=== PATIENT | female | born 1970 | race Asian ===

== ENCOUNTER 2019-09-20 09:47 | Inpatient (IN) | payer BC ==
[~2019-09-20] VITALS: Ht 154.9 cm; Wt 55.8 kg
[2019-09-20] VITALS (17 sets, daily range): BP systolic 83–105; BP diastolic 42–61
[~2019-09-20 09:47] MED LIST: Lidocaine 1% MPF 10mg/ml 5ml ONE; Lidocaine 1% Plain 30 ml INJ ONE; Propofol 200mg/20ml IV ONE; Sodium Chloride 10ml vial INJ ONE; ceFAZolin sod 2 GM in NS 55 ML IVPB ONE
[2019-09-20] MEDS ORDERED: Rocuronium Bromide 50mg/5ml Inj IV ONE (09:54)
[2019-09-20] MEDS ORDERED: LR 1000ml 1,000 ML IVLG SCH ×2 (10:01)
[2019-09-20] MEDS ORDERED: Dexamethasone 4mg/ml vial ONE (10:06)
[2019-09-20] MEDS ORDERED: fentaNYL 100 mcg/2 mL IV ONE (10:07)
[2019-09-20] MEDS ORDERED: Kenalog-40 1ml Vial ONE (10:10)
[2019-09-20] MEDS ORDERED: LORazepam Inj 2mg/ml 1ml IV PRN ×2 (10:15)
[2019-09-20] MEDS ORDERED: Meperidine 25mg/0.5ml Inj (FOR RIGORS ONLY) IV PRN ×2 (10:15)
[2019-09-20] MEDS ORDERED: Metoclopramide 10mg/2ml Inj IVP PRN ×2 (10:15)
[2019-09-20] MEDS ORDERED: Ketorolac 30mg Inj IV PRN ×5 (10:15→12:30)
[2019-09-20] MEDS ORDERED: Atropine Sulfate 0.4mg/ml inj IVP PRN ×2 (10:15)
[2019-09-20] MEDS ORDERED: HYDROcodone/Acetamin 7.5/325 tab ORAL PRN ×2 (10:15)
[2019-09-20] MEDS ORDERED: HYDROcodone/Acetamin 5/325 tab ORAL PRN ×2 (10:15)
[2019-09-20] MEDS ORDERED: oxyCODONE HCL/Acetaminophen 5/325mg ORAL PRN ×2 (10:15)
[2019-09-20] MEDS ORDERED: Hydromorphone 0.5mg/0.5ml inj IVP PRN ×2 (10:15)
[2019-09-20] MEDS ORDERED: DiphenhydrAMINE 50mg/ml Inj IVP PRN ×2 (10:15)
[2019-09-20] MEDS ORDERED: Midazolam 2mg/2ml Inj IVP PRN ×2 (10:15)
[2019-09-20] MEDS ORDERED: Labetalol 5mg/ml 20ml vial IV PRN ×2 (10:15)
[2019-09-20] MEDS ORDERED: fentaNYL 100 mcg/2 mL IV PRN ×2 (10:15)
[2019-09-20] MEDS ORDERED: VITAMIN B COMP1 EAC5 PO (10:33)
[2019-09-20] MEDS ORDERED: VITAMIN D2000 UNI3 PO (10:33)
[2019-09-20] MEDS ORDERED: VITAMIN B12-FO1 EAC1 PO (10:33)
[2019-09-20] MEDS ORDERED: IRON 100 PLUS1 EACH PO (10:33)
--- NOTE | 2019-09-20 10:34 | Anethesia Preoperative Eval ---
Anesthesia Pre-op PMH/ROS General Date of Evaluation: Sep 20, 2019 Time of Evaluation: 10:46 Anesthesiologist: Raad ASA Score: ASA 2 Mallampati Score Class I : Soft palate, uvula, fauces, pillars visible Class II: Soft palate, uvula, fauces visible Class III: Soft palate, base of uvula visible Class IV: Only hard plate visible Mallampati Classification: Class II Surgeon: Josefa Diagnosis: Abd Pain Surgical Procedure: Open Myomectomy Anesthesia History: none Family History: no anesthesia problems Allergies: Coded Allergies: No Known Allergies (Unverified , 09/20/19) Medications: see eMAR Patient NPO?: Yes Past Medical History Gastrointestinal/Genitourinary: Reports: other - Uterine Fibroids Neurologic/Psychiatric: Reports: depression/anxiety Endocrine: Reports: hypothyroidism, other - Thyroid CA Hematology/Immune: Reports: anemia PSxH Narrative: Thyroidectomy, Breast Augmentation Anesthesia Pre-op Phys. Exam Physician Exam Last Vital Signs Date Time Temp Pulse Resp B/P (MAP) Pulse Ox O2 Delivery O2 Flow Rate FiO2 09/20/19 10:22 98.0 79 18 103/57 (72) 100 Constitutional: NAD Neurologic: CN 2-12 intact Cardiovascular: RRR Respiratory: CTA Gastrointestinal: S/NT/ND Airway Exam Mallampati Score: Class II MO: full ROM: full Teeth: intact Anesthesia Pre-op A/P Labs Urine Test Test 09/20/19 10:00 Urine HCG, Qualitative Pending Risk Assessment & Plan Assessment: ASA 2 Plan: GA, SED, GlideScope Go Status Change Before Surgery: No Pre-Antibiotics Dru Gram Ancef IV Given Within 1 Hr of Incision: Yes Drake Shankar MD Sep 20, 2019 10:34
--- NOTE | 2019-09-20 10:35 | Immediate Post-Op Evaluation ---
Immediate Post-Op Evalulation Immediate Post-Op Evalulation Procedure: Open Myomectomy Date of Evaluation: Sep 20, 2019 Time of Evaluation: 12:44 IV Fluids: 800 LR Blood Products: 0 Estimated Blood Loss: 25 Urinary Output: 0 Blood Pressure Systolic: 90 Blood Pressure Diastolic: 50 Pulse Rate: 74 Respiratory Rate: 16 O2 Sat by Pulse Oximetry: 100 Temperature (Fahrenheit): 97.7 Pain Score (1-10): 2 Nausea: No Vomiting: No Complications 0 Patient Status: awake, reacts, patent, extubated, none Hydration Status: adequate Dru Gram Ancef IV Given Within 1 Hr of Incision: Yes Time Given: 11:11 Drake Shankar MD Sep 20, 2019 10:35
--- NOTE | 2019-09-20 10:53 | Pre-Procedure Note/Attestation ---
Pre-Procedure Note/Attestation Complete Prior to Procedure Planned Procedure: not applicable Procedure Narrative: abdominal myomectomy, lysis of adhesions Indications for Procedure Pre-Operative Diagnosis: myoma Attestation I attest that Dr. Villegas discussed the nature of the procedure; its benefits; risks and complications; and alternatives (and the risks and benefits of such alternatives), prior to the procedure, with the patient (or the patient's legal pharmacy services representative). I attest that I will be assisting with procedure and have discussed this with patient I attest that, if there was a reasonable possibility of needing a blood transfusion, the patient (or the patient's legal pharmacy services representative) was given the [place] [facility] [employer] [facility] standardized written summary, pursuant to the Pablo Ramu Blood Safety Act ([place] Health and Safety Code # 1645, as amended). I attest that I re-evaluated the patient just prior to the surgery and that there has been no change in the patient's H&P, except as documented below: Octavio Landers Sep 20, 2019 10:53
[2019-09-20] MEDS ORDERED: Sterile Water Irrig 1000ml IRRIG ONE (11:00)
[2019-09-20] MEDS ORDERED: LR 1000ml ONE (11:00)
[2019-09-20] MEDS ORDERED: Acetaminophen (Non formulary) 100 ML IV ONE (11:15)
[2019-09-20] MEDS ORDERED: Glycopyrrolate 0.2mg/ml 1ml Vial ONE ×2 (11:35→11:43)
[2019-09-20] MEDS ORDERED: Neostigmine 1mg/ml 10ml Inj ONE (11:35)
[2019-09-20] MEDS ORDERED: ePHEDrine 50mg/ml Inj ONE (11:39)
[2019-09-20] MEDS ORDERED: NS Irrig 1000ml IRRIG ONE (11:45)
[2019-09-20] MEDS ORDERED: Gelfoam Size TOPIC ONE (11:51)
[2019-09-20] MEDS ORDERED: Thrombin 5000 units TOPIC ONE (11:53)
--- NOTE | 2019-09-20 12:20 | Brief Operative Note ---
Immediate Post Operative Note Operative Note Pre-op Diagnosis: myoma Procedure: abdominal exposure open lysis of adhesions Post-op Diagnosis: same as pre-op Surgeon: mary Additional Surgeons: geovani Anesthesia: general, local Specimen: yes Complications: none Condition: stable Fluids: see records Estimated Blood Loss: minimal Drains: none Implant(s) used?: No Octavio Landers Sep 20, 2019 12:20
[2019-09-20] MEDS ORDERED: Sennosides 8.6mg tab ORAL PRN (12:30)
[2019-09-20] MEDS ORDERED: HYDROcodone/Acetamin 10/325 tab ORAL PRN (12:30)
[2019-09-20] MEDS ORDERED: Milk of Magnesia 30ml Ud ORAL PRN (12:30)
[2019-09-20] MEDS ORDERED: Morphine Sulfate 2mg/ml Inj(IV/IM USE ONLY) IVP PRN ×2 (12:30)
[2019-09-20] MEDS ORDERED: DiphenhydrAMINE 25mg Tab ORAL PRN (12:30)
--- NOTE | 2019-09-20 14:52 | NUR ---
NURSE NOTES: Patient arrived to unit at 1405 via bed, accompanied by RN. Received report from Hailey DE. Patient is drowsy but arousable on arrival, no acute distress noted, reporting "my abdomen hurts", surgical site dressing clean, dry, intact, SCD's on, IV intact, patent. Corona to gravity drainage. Patient's at bedside, updated on plan of care. Side rails upx3, bed low and locked, call light within reach.
[2019-09-20] MEDS: D5 1/2NS w/KCl 20mEq 1,000 ML IV SCH (15:47)
[2019-09-20] MEDS: HYDROcodone/Acetamin 5/325 tab ORAL PRN (16:22)
--- NOTE | 2019-09-20 16:30 | Operative Note - Dictated ---
DATE OF OPERATION: 09/20/2019 PREOPERATIVE DIAGNOSIS: Myomata. POSTOPERATIVE DIAGNOSIS: Myomata. OPERATION PERFORMED: 1. Abdominal exposure. 2. Open lysis of adhesions. ATTENDING SURGEON: Octavio Landers M.D. ADDITIONAL SURGEON: Adam Rivero M.D. ANESTHESIA: General plus local. ESTIMATED BLOOD LOSS: Minimal. IV FLUIDS: Please see anesthesia records. COMPLICATIONS: None. DRAINS: None. COUNTS: Sponge and needle count correct x2. WOUND CLASSIFICATION: INDICATIONS FOR PROCEDURE: This is a 49-year-old female with symptomatic myomata, who was seen by Dr. Adam Rivero prior and had ablation and has been scheduled for myomectomy on 09/20/2019. Given the patient's history, her embolization history, and planned surgery General surgery was asked to assist in abdominal exposure and lysis of adhesions as necessary. Primary surgeon is Dr. Adam Rivero and I was called to assist him in the exposure lysis of adhesions. I have seen the patient preoperatively and explained to her my role in the procedure. Risks, benefits, alternatives were discussed by Dr. Adam Rivero. OPERATIVE NOTE: The patient was taken to the operating room and placed on the operating table in supine position with bilateral arms out. All bony prominences were well padded. SCDs placed. Preoperative time-out taken in identifying the patient, procedure, operative staff, and surgical staff. General anesthesia was induced and the patient was intubated. The abdomen was clipped, prepped, and draped in standard surgical fashion. A Pfannenstiel incision was utilized using a fresh #10 scalpel and carried down through the skin and subcutaneous tissue to the fascia. A fascia was exposed and incised and the peritoneal lining identified. The peritoneum was opened and entry into the abdomen was obtained without complication. There was some omental adhesions to the peritoneum identified and some small bowel adhesions around the uterus. Gentle blunt dissection and Metzenbaum scissors were used to free the adhesions from the uterus and the dome of the uterus was grasped and uterus was brought into the operative field. The myomata was evaluated and noted. Dr. Adam Rivero performed the remainder of the procedure. Please see his operative report for details and the myoma was resected. Following this, the abdomen was checked for hemostasis and noted. The lysis was identified and noted to be hemostatic and without complication. At this time, we began the closure of the abdomen. The peritoneal lining was reapproximated using #0 Vicryl suture. The fascia was reapproximated using #0 Vicryl sutures followed by reapproximation of the skin using 3-0 Monocryl running subcuticular suture. Wound was cleansed. Skin glue was applied followed by Steri-Strips and dressings. The patient tolerated procedure well, was extubated, and taken to postanesthetic care in stable condition. I was present through the entire procedure and performed the abdominal exposure as well as the lysis of adhesions. I assisted Dr. Adam Rivero with a myomectomy which he had performed. Octavio Landers M.D. DR: Aissatou JOB#: [id number] CC:
[2019-09-20] MEDS: Docusate 100mg cap ORAL SCH (17:57)
[2019-09-20] MEDS: cefOXitin Sod 2 GM in D5W 110 ML IV SCH (17:58)
--- NOTE | 2019-09-20 18:25 | NUR ---
CASE MANAGEMENT: INITIAL REVIEW 09/20/2019 49 YO F PRESENTED TO HOSPITAL FOR SURGERY SI:FIBROIDS T 98 HR 79 RR 18 B/P 103/57 SATS 100% ON RA LABS: HCG (-) IS: IVF @ 75 mL/HR VENOFER IV QHS CEFOXITIN IV Q6H PATIENT ADMITTED TO MED/SURG 09/20/2019 @ 1220 DCP: HOME PLAN OF CARE: Pre-op Diagnosis: myoma Procedure: abdominal exposure open lysis of adhesions Post-op Diagnosis: same as pre-op Addendum: 09/20/19 at 1830 by Neida Dominguez CM INTERQUAL MET
--- NOTE | 2019-09-20 19:00 | NUR ---
NURSE NOTES: Called Dr. Rivero regarding patient's request for different pain medications, left voicemail. Awaiting callback.
--- NOTE | 2019-09-20 19:23 | NUR ---
NURSE NOTES: Received report from SANTINO Vasquez. Pt is awake, lying semi-pond's. No signs of acute distress noted. Pt reports 10/10 pain in the abdomen area. Will provide pain medication as soon as possible. AOx4; able to make needs known. Checked IV site, line, and rate; patent and running. No erythema, bleeding, or infiltration noted. Bed at lowest position. Siderails up x2. Brakes on. Call light within reach. Will continue to monitor.
--- NOTE | 2019-09-20 19:27 | NUR ---
HAND-OFF: Report given to Oumou DE.
--- NOTE | 2019-09-20 19:30 | NUR ---
NURSE NOTES: Received a call from Dr. Rivero for an order of Dilaudid 2 mg IVP for PRN severe pain. Order read back and carried out.
--- NOTE | 2019-09-20 19:40 | NUR ---
NURSE NOTES: Received a call from Pharmacy regarding the PRN pain medications ordered. Pharmacy said that "...cannot have both Dilaudid and Morphine for severe pain medication. You have to cancel one of the two". Pt made aware of this and pt stated that "I want to try morphine since I wasn't given that yet and I have had it before". Request carried out and pt verbalized understanding of her decision.
[2019-09-20] MEDS: Morphine Sulfate 4mg/ml Inj (IV USE ONLY) IVP PRN (20:02)
[2019-09-20] MEDS: Iron Sucrose 100 MG in NS 55 ML IV SCH (20:44)
[2019-09-20] MEDS: Heparin 5000 units/ml inj SUBQ SCH (20:47)
[2019-09-21] VITALS (7 sets, daily range): BP systolic 81–101; BP diastolic 43–59
[2019-09-21] MEDS: cefOXitin Sod 2 GM in D5W 110 ML IV SCH ×2 (00:28→05:02)
[2019-09-21] MEDS: Morphine Sulfate 4mg/ml Inj (IV USE ONLY) IVP PRN ×2 (00:31→20:46)
--- NOTE | 2019-09-21 04:15 | NUR ---
NURSE NOTES: Pt's SBP dropped to low 70s and office machinery or equipment installer made aware. Repositioned pt with feet elevated and pt's SBP went back up to 80s, which is the baseline SBP according to pt. Pt also complains of 5/10 pain in the abdomen area. Unable to provide morphine pain relief due to low SBP. Pt refused to take another pain medication aside from pain medication as pt is afraid she might feel "sick in the stomach" and for it to not work as well as morphine. Pt made aware of the consequences and other options she has for pain medication. Pt verbalized understanding. Addendum: 09/22/19 at 0004 by Sundar Doty RN Pt was asymptomatic when SBP was in the low 70s. However, pt started complaining of feeling like "vomiting" when her SBP started to go back up to 80s.
[2019-09-21] MEDS: D5 1/2NS w/KCl 20mEq 1,000 ML IV SCH ×2 (04:36→18:34)
--- NOTE | 2019-09-21 04:45 | Operative Note - Dictated ---
DATE OF OPERATION: 09/20/2019 SURGEON: Adam Rivero M.D. [employer] SALES CONSULTANT: Octavio Landers M.D. ANESTHESIOLOGIST: Drake Shankar M.D. ANESTHESIA: General endotracheal. PREOPERATIVE DIAGNOSIS: Symptomatic leiomyoma of the uterus. POSTOPERATIVE DIAGNOSES: Symptomatic leiomyoma of the uterus plus pelvic adhesions plus right ovarian cyst. PROCEDURE: Abdominal myomectomy (difficult), lysis of adhesions (dictated by Dr. Landers as a separate note), and incisional biopsy of right ovarian cyst. ESTIMATED BLOOD LOSS: Less than 10 mL. COMPLICATIONS: None. COUNT: Sponge and needle count correct x2. INDICATIONS AND FINDINGS: This perimenopausal female presents with pelvic pain with leiomyoma of the uterus known. The patient has been anemic from heavy bleeding. She is taken to the operating room following an extensive discussion of risks, benefits, and alternatives to abdominal myomectomy including abdominal hysterectomy. The patient desires to continue with the procedure as described in the operative consent. FINDINGS: At the time of laparotomy included pelvic adhesions, which were lysed by Dr. Lnaders (see separate procedure). The uterus had a cervical myoma of approximately 6 cm. This was removed as described below. A second submucous myoma was also removed. The left tube and ovary were normal. The right ovary had a cyst with malignant potential, which was excised as described below. There is no evidence of continued bleeding at the end of the procedure. No evidence of disruption of genitourinary or gastrointestinal tract. The urine was clear at the end of the case. The patient left the operating room in stable condition. DESCRIPTION OF PROCEDURE: Under general anesthesia, the patient was prepped and draped, placed in the dorsal position. Abdomen entered through a Pfannenstiel incision and the abdominal cavity was entered bluntly. The uterus was delivered out of the incision. The findings described above were noted. Following the lysis of adhesions by Dr. Landers (dictated as a separate note), the patient's serosa was injected with 20 units of Pitressin and 50 mL of saline. The cervical myoma was elevated out of the Pfannenstiel incision and dissected bluntly and sharply. Bleeding points were fulgurated with cautery current. A second submucous myoma was entered. It was found by using a midline incision. The incision was carried down to the myoma, which was then noted to be in the endometrial cavity and likely to be the cause of the patient's menorrhagia. This was also excised. Time of both excisions is 45 minutes. Bleeding points again were fulgurated. A thrombin-soaked Gelfoam pack was placed in the deep endometrial cavity. The space was closed with interrupted sutures of #1 chromic. The patient's serosa was then closed with running and interrupted 0 Vicryl suture. No bleeding points were seen. mattress # 1chromic sutures were used to close the space. No bleeding was seen. Sponge and needle count was correct and the abdominal cavity was then closed. Prior to this, the right ovarian cyst had been excised. Cyst fluid sent for cytologic evaluation and the cyst wall was sent for pathologic exam. The patient's fascia was closed with interrupted sutures of 0 Vicryl. The skin was then closed with 3-0 Prolene and Steri-Strips. No bleeding was seen. Urine was clear. Vital signs were stable. The patient left the operating room in stable condition. Adam Rivero M.D. DR: Marco Antonio JOB#: [id number] CC: MICHA
[2019-09-21] MEDS: Metoclopramide 10mg/2ml Inj IVP PRN ×2 (05:15→21:21)
[2019-09-21 06:01] LABS: HEMATOCRIT 21.5 % (37.0-47.0); MEAN CORPUSCULAR VOLUME 83 FL (80-99); PLATELET COUNT 300 K/UL (150-450); RED BLOOD COUNT 2.58 M/UL (4.20-5.40); RED CELL DISTRIBUTION WIDTH 13.2 % (11.6-14.8); WHITE BLOOD COUNT 12.8 K/UL (4.8-10.8)
[2019-09-21 06:23] LABS: ANION GAP 8 mmol/L (5-15); BLOOD UREA NITROGEN 5 mg/dL (7-18); CALCIUM 7.5 MG/DL (8.5-10.1); CARBON DIOXIDE 24 MMOL/L (21-32); CHLORIDE 109 MMOL/L (98-107); CREATININE 0.5 MG/DL (0.55-1.30); PHOSPHORUS 2.6 MG/DL (2.5-4.9); POTASSIUM 3.7 MMOL/L (3.5-5.1); SODIUM 140 MMOL/L (136-145)
--- NOTE | 2019-09-21 07:35 | NUR ---
HAND-OFF: Report given to SANTINO Perdue. Pt is awake and in stable condition. Plan of care endorsed.
--- NOTE | 2019-09-21 08:16 | NUR ---
NURSE NOTES: received report from SANTINO Coello. patient in bed alert oriented. verbally responsive. no respiratory distress noted. discomfort on lower abd. BP 81/50 at this time. no dizziness. no nausea. IV on RH 20 running D51/2ns@75/hr. bed in the lowest position and locked. call light within reach. will continue to provide plan of care.
--- NOTE | 2019-09-21 08:32 | History & Physical ---
History and Physical History & Physicial DICT # [id number] Bin Ayala MD Sep 21, 2019 08:32
[2019-09-21] MEDS: Heparin 5000 units/ml inj SUBQ SCH ×2 (09:05→20:55)
[2019-09-21] MEDS: Docusate 100mg cap ORAL SCH ×2 (09:05→18:00)
--- NOTE | 2019-09-21 09:43 | NUR ---
NURSE NOTES: Spoke to regarding patient. Per :1. Hold Blood transfusion for now, 2. Repeat CBC @ noon, 3. D/C Corona. Order noted and carried out.
--- NOTE | 2019-09-21 11:24 | 48 Hour Post Anesthesia Eval ---
Post Anesthesia Evaluation Procedure: Open Myomectomy Date of Evaluation: Sep 21, 2019 Airway: patent Nausea: No Vomiting: No Pain Intensity: 2 Hydration Status: adequate Cardiopulmonary Status: at baseline Mental Status/LOC: patient returned to baseline Post-Anesthesia Complications: 0 Follow-up care needed: N/A - hb down to 7, patient slightly hypotensive but otherwise stable and AAOx3, further care as per primary team/Dr. Koroma...possible blood transfusion, pending follow up Hb Grace Flores MD Sep 21, 2019 11:24
[2019-09-21 12:45] LABS: HEMATOCRIT 21.2 % (37.0-47.0); MEAN CORPUSCULAR VOLUME 84 FL (80-99); PLATELET COUNT 284 K/UL (150-450); RED BLOOD COUNT 2.54 M/UL (4.20-5.40); RED CELL DISTRIBUTION WIDTH 13.5 % (11.6-14.8); WHITE BLOOD COUNT 11.9 K/UL (4.8-10.8)
[2019-09-21 12:46] LABS: HEMOGLOBIN 6.8 G/DL (12.0-16.0)
--- NOTE | 2019-09-21 13:18 | NUR ---
NURSE NOTES: Notified Dr. Koroma for the critical Lab of Hgb6.8. MD will see patient in an hour. and patient is aware.
--- NOTE | 2019-09-21 13:32 | NUR ---
PT NOTE Received MD order for PT evaluation. PT evaluation deferred due to critical value low Hgb at 6.8 and low BP. Discussed with Iron DE, will follow up tomorrow.
--- NOTE | 2019-09-21 13:49 | NUR ---
NURSE NOTES: seen by Dr. Landers. received order of upgrade diet to regular diet. order noted and carried out.
--- NOTE | 2019-09-21 14:02 | NUR ---
NURSE NOTES: Spoke to regarding pain medication and blood pressure. Per : ok to give pain medication with low blood pressure. Order noted and carried out.
[2019-09-21] MEDS ORDERED: HYDROmorphone 1mg/ml Carpuject IVP SCH (14:04)
[2019-09-21] MEDS ORDERED: Hydromorphone 0.5mg/0.5ml inj IVP PRN ×2 (14:15)
[2019-09-21] MEDS ORDERED: HYDROmorphone 1mg/ml Carpuject IVP PRN ×3 (14:15)
--- NOTE | 2019-09-21 14:30 | History and Physical Report ---
DATE OF ADMISSION: 09/20/2019 REASON FOR ADMISSION: Post myomectomy. HISTORY OF PRESENT ILLNESS: The patient is a 49-year-old female with a history of thyroid cancer, status post partial thyroidectomy and uterine fibroids, prior uterine fibroid embolization with heavy menses and dysfunctional uterine bleeding, status post uterine myomectomy. She is doing well except for pain. Her blood pressure has been borderline. Thus, her pain medications have been held. She feels flatus, but no bowel movement. No fevers or chills. No nausea or vomiting. No chest pain or other complaints. PAST MEDICAL HISTORY: 1. Fibroids. 2. Hypothyroidism. 3. Thyroid cancer. PAST SURGICAL HISTORY: 1. Partial thyroidectomy. 2. Uterine fibroid embolization. 3. Breast augmentation and nipple reduction. 4. Uterine myomectomy. ALLERGIES: No known drug allergies. MEDICATIONS: Prior to admission medications, reviewed. Current medications, reviewed. SOCIAL HISTORY: She is a pharmacist. , has three teenage children. No tobacco, alcohol, or drug use. FAMILY HISTORY: Father with nasopharyngeal CA. REVIEW OF SYSTEMS: Negative other than the history of present illness. PHYSICAL EXAMINATION: VITAL SIGNS: Temperature 99.1, pulse 79, blood pressure , respiratory rate 18, saturation 100% on 2 L. GENERAL: She is a well-developed and well-nourished female, in no acute distress. Awake, alert, and oriented x3. HEENT: Normocephalic and atraumatic. Oropharynx is clear with moist mucous membranes. NECK: Supple without lymphadenopathy or JVD. CHEST: Clear. HEART: Regular. ABDOMEN: Mild diffuse tenderness. Soft, nondistended. Hypoactive bowel sounds. ANCILLARY DATA: White count 12.8, hemoglobin 7, hematocrit 21.5, and platelet count 300. Sodium 140, potassium 3.7, chloride 109, bicarb 24, BUN 5, creatinine 0.5, glucose 126, calcium 7.5. Urine test negative. Laboratories from my office, reviewed. ASSESSMENT: The patient is a 49-year-old female with a history of uterine fibroids and dysfunctional uterine bleeding, prior uterine fibroid embolization, now status post uterine myomectomy, postop day 1, doing well except for postoperative anemia and low blood pressure. PROBLEM LIST: 1. Uterine fibroids, status post prior uterine fibroid embolization, now status post myomectomy, 09/20/2019, Dr. Rivero. 2. History of thyroid cancer, status post partial thyroidectomy. 3. Postoperative anemia. TREATMENT PLAN: 1. Pain control/supportive care. 2. Transfuse PRBC. 3. IV fluid hydration. 4. Monitor for further bleeding. 5. Monitor for return of bowel function. 6. Advanced diet per Dr. Rivero. 7. Encourage ambulation out of bed. 8. DVT prophylaxis. 9. Incentive spirometer. 10. The patient is a Full Code. Dr. Rivero, thank you for allowing me to assist in the care of your patient. If I may be of any assistance in the future, please do not hesitate to ask. Heather Lemons JOB#: [id number] CC:
--- NOTE | 2019-09-21 14:53 | Surgery Progress Note ---
Surgery Progress Note Subjective Procedure Performed abdominal exposure open lysis of adhesions Additional Comments post op pain no n/v/f/c labs stable/improving Objective Last 24 Hour Vital Signs Date Time Temp Pulse Resp B/P (MAP) Pulse Ox O2 Delivery O2 Flow Rate FiO2 09/21/19 12:00 98.7 82 18 81/50 (60) 100 09/21/19 09:00 Nasal Cannula 2.0 09/21/19 08:00 98.6 73 20 81/50 (60) 99 09/21/19 04:00 99.1 79 18 81/49 (60) 100 09/21/19 00:00 99.1 77 16 93/55 (68) 99 09/20/19 21:00 Nasal Cannula 2.0 09/20/19 20:00 99.0 71 16 102/60 (74) 98 09/20/19 17:05 72 14 98/60 (73) 99 09/20/19 16:05 77 14 96/61 (73) 98 09/20/19 15:48 97.9 09/20/19 15:05 76 14 90/52 (65) 99 I&O Intake and Output 09/20/19 09/21/19 19:00 07:00 Intake Total 3350 ml 1290 ml Output Total 750 ml 1500 ml Balance 2600 ml -210 ml Intake Oral 50 ml IV Total 3300 ml 1290 ml Output Urine Total 725 ml 1500 ml Estimated Blood Loss 25 ml # Voids 1 Dressing: dry Wound: clean Cardiovascular: RSR Respiratory: clear Abdomen: soft, tenderness, decreased bowel sounds Extremities: no cyanosis Laboratory Tests Test 09/21/19 05:00 09/21/19 12:30 White Blood Count 12.8 K/UL (4.8-10.8) H 11.9 K/UL (4.8-10.8) H Red Blood Count 2.58 M/UL (4.20-5.40) L 2.54 M/UL (4.20-5.40) L Hemoglobin 7.0 G/DL (12.0-16.0) L 6.8 G/DL (12.0-16.0) *L Hematocrit 21.5 % (37.0-47.0) L 21.2 % (37.0-47.0) L Mean Corpuscular Volume 83 FL (80-99) 84 FL (80-99) Mean Corpuscular Hemoglobin 27.0 PG (27.0-31.0) 26.8 PG (27.0-31.0) L Mean Corpuscular Hemoglobin Concent 32.5 G/DL (32.0-36.0) 32.1 G/DL (32.0-36.0) Red Cell Distribution Width 13.2 % (11.6-14.8) 13.5 % (11.6-14.8) Platelet Count 300 K/UL (150-450) 284 K/UL (150-450) Mean Platelet Volume 5.8 FL (6.5-10.1) L 5.9 FL (6.5-10.1) L Neutrophils (%) (Auto) % (45.0-75.0) % (45.0-75.0) Lymphocytes (%) (Auto) % (20.0-45.0) % (20.0-45.0) Monocytes (%) (Auto) % (1.0-10.0) % (1.0-10.0) Eosinophils (%) (Auto) % (0.0-3.0) % (0.0-3.0) Basophils (%) (Auto) % (0.0-2.0) % (0.0-2.0) Differential Total Cells Counted 100 100 Neutrophils % (Manual) 85 % (45-75) H 86 % (45-75) H Lymphocytes % (Manual) 7 % (20-45) L 8 % (20-45) L Monocytes % (Manual) 8 % (1-10) 6 % (1-10) Eosinophils % (Manual) 0 % (0-3) 0 % (0-3) Basophils % (Manual) 0 % (0-2) 0 % (0-2) Band Neutrophils 0 % (0-8) 0 % (0-8) Platelet Estimate Adequate Adequate Platelet Morphology Normal Normal Hypochromasia 1+ 1+ Sodium Level 140 MMOL/L (136-145) Potassium Level 3.7 MMOL/L (3.5-5.1) Chloride Level 109 MMOL/L (98-107) H Carbon Dioxide Level 24 MMOL/L (21-32) Anion Gap 8 mmol/L (5-15) Blood Urea Nitrogen 5 mg/dL (7-18) L Creatinine 0.5 MG/DL (0.55-1.30) L Estimat Glomerular Filtration Rate > 60 mL/min (>60) Glucose Level 126 MG/DL (74-106) H Calcium Level 7.5 MG/DL (8.5-10.1) L Phosphorus Level 2.6 MG/DL (2.5-4.9) Magnesium Level 1.9 MG/DL (1.8-2.4) Polychromasia 1+ Anisocytosis 1+ Assessment Additional Comments clear liquids do not advance yet iv fluids pain rx pt/ot AM labs than you Octavio Landers Sep 21, 2019 14:53
--- NOTE | 2019-09-21 15:00 | NUR ---
PT EVALUATION NOTE Patient seen for initial evaluation. Patient presents with pain and impaired functional mobility s/p surgery. Patient requires mod assist for bed mobility and transfers. Patient able to take several small sideways steps with assistance. Mobility and activity tolerance limited by pain. Patient will benefit from skilled inpatient PT intervention to address strength, balance and safety for increased level of independence with functional mobility. Anticipate discharge home once medically cleared by MD. DME needs to be determined based on patient's progress. Addendum: 09/21/19 at 1502 by VERONA GARCIA PT Amended: Links added.
--- NOTE | 2019-09-21 16:20 | NUR ---
NURSE NOTES: confirmed with Franci Britton. hold transfusion now per patient request. will see the lab tomorrow. patient request get back to morphine d/t dilaudid makes her too drowsy. notified and received order to resume morphine. DC cosme.
--- NOTE | 2019-09-21 16:32 | NUR ---
CASE MANAGEMENT: INITIAL REVIEW 49YR OLD FEMALE HERE FOR ELECTIVE PROCEDURE CC: ABD PAIN SI:UTERINE FIBROIDS 98.0 79 18 103/57 100% ON RA IS:IN SURGERY NOW OPEN MYOMECTOMY \: 3E MED SURG UNIT CASE MANAGEMENT: REVIEW 09/21/19 SI:S/P OPEN MYOMECTOMY UTERINE FIBROIDS 98.7 82 18 81/50 100% ON RA WBC 12.8 H/H 6.5/21.2 IS:HEPARIN SQ BID IV D5@75ML/HR IV VENOFER QHS X 5BAGS \: 3E MED SURG UNIT
--- NOTE | 2019-09-21 19:21 | NUR ---
NURSE NOTES: Received report from SANTINO Perdue. Pt is awake, lying semi-pond's. No signs of acute distress noted. Pt reports 10/10 pain in the abdomen area. AOx4; able to make needs known. IV site is discontinued. Off going RN tried 2x to establish IV site but unsuccessful. Will reattempt again at a later time. No erythema or bleeding noted. Bed at lowest position. Brakes on. Siderails up x2. Call light within reach. Will continue to monitor.
--- NOTE | 2019-09-21 19:24 | NUR ---
NURSE NOTES: returned morphine 1mg IVP d/t IV site occluded.
--- NOTE | 2019-09-21 19:25 | NUR ---
HAND-OFF: Report given to SANTINO faye.
--- NOTE | 2019-09-21 20:29 | NUR ---
NURSE NOTES: Pt has a temperature of 102.5 and pt requested to change her moderate and severe pain medications. She stated that the dilaudid that she got earlier today before she got up to PT was "too strong" and made her very drowsy. Dr. Rivero made aware of the pt's condition and request. Dr. Rivero made new orders. See orders for details.
--- NOTE | 2019-09-21 20:29 | NUR ---
NURSE NOTES: New orders noted and carried out. Addendum: 09/22/19 at 0730 by Sundar Doty RN New orders were from Dr. Rivero. Addendum: 09/22/19 at 0731 by Sundar Doty RN This is back charting from 09/21/2018 at 2029.
--- NOTE | 2019-09-21 20:30 | NUR ---
NURSE NOTES: Dr. Landers made aware of the pt's request to change her dilaudid medications for moderate and severe pain to morphine instead. New orders noted and carried out. See orders for details.
[2019-09-21] MEDS: Iron Sucrose 100 MG in NS 55 ML IV SCH (20:47)
[2019-09-21] MEDS: ceFAZolin sod 1 GM in D5W 55 ML IVPB SCH (21:21)
--- NOTE | 2019-09-21 21:30 | NUR ---
NURSE NOTES: Pt's has reported his concern regarding the care that his has been getting. He stated that the "PT that took care of her this morning were very impatient. They did not care about my , was rushing, and just want to get the job done and leave". He also complained that "the pain management here in this hospital has not been good". Pain medication was not given on the prior night 09/20/2019 due to low BP in the 70s and low 80s until the Doctors saw the pt in the am and okayed giving pain medications with low BPs. He also stated that his 's IV site has not been working since 1600 and his "was not given pain medication for a while because of that" in the am shift 09/21/2019. New IV site was not established until 1999 and was finally given pain medication. Will keep up with the pt's pain medication on the clock. He also complained about how his has not been getting the IV fluid that she was supposed to get since 1400, which he also stated as the cause of the "IV not working". The was very unsatisfied with the care. The pt and the were informed of the pain medications will be given on time according to the schedule without delayed. fireproof door maker made aware of his complaints and concerns. Pt's has already talked to fireproof door maker as well about his complaints and concerns. Oncoming RN will be informed of the concerns. verbally stated that he understands.
[2019-09-22] VITALS: BP 100/59
[2019-09-22] MEDS: Morphine Sulfate 4mg/ml Inj (IV USE ONLY) IVP PRN ×3 (00:49→09:08)
[2019-09-22 04:00] VITALS: BP 92/57
[2019-09-22] MEDS: Metoclopramide 10mg/2ml Inj IVP PRN (04:40)
[2019-09-22] MEDS: ceFAZolin sod 1 GM in D5W 55 ML IVPB SCH ×3 (05:30→22:19)
[2019-09-22 06:11] LABS: ALANINE AMINOTRANSFERASE 28 U/L (12-78); ALBUMIN 2.4 G/DL (3.4-5.0); ALBUMIN/GLOBULIN RATIO 0.7 (1.0-2.7); ALKALINE PHOSPHATASE 60 U/L (46-116); ANION GAP 8 mmol/L (5-15); ASPARTATE AMINO TRANSFERASE 36 U/L (15-37); BILIRUBIN,TOTAL 0.5 MG/DL (0.2-1.0); BLOOD UREA NITROGEN 4 mg/dL (7-18); CALCIUM 7.8 MG/DL (8.5-10.1); CARBON DIOXIDE 25 MMOL/L (21-32); CHLORIDE 108 MMOL/L (98-107); CREATININE 0.5 MG/DL (0.55-1.30); POTASSIUM 3.7 MMOL/L (3.5-5.1); SODIUM 141 MMOL/L (136-145)
[2019-09-22 06:14] LABS: HEMATOCRIT 21.6 % (37.0-47.0); HEMOGLOBIN 7.1 G/DL (12.0-16.0); MEAN CORPUSCULAR VOLUME 83 FL (80-99); PLATELET COUNT 318 K/UL (150-450); RED CELL DISTRIBUTION WIDTH 13.2 % (11.6-14.8); WHITE BLOOD COUNT 12.8 K/UL (4.8-10.8)
--- NOTE | 2019-09-22 07:28 | NUR ---
NURSE NOTES: Received pt From Sundar Coello RN. pt was sleeping, was at bedside. no acute distress. call light w/in reach. will monitor closely
[2019-09-22 08:00] VITALS: BP 94/57
--- NOTE | 2019-09-22 08:23 | NUR ---
NURSE NOTES: Report given to SANTINO Johnson. Pt is awake and in stable condition. Plan of care endorsed. Addendum: 09/22/19 at 0824 by uSndar Doty RN Wrong patient documentation.
--- NOTE | 2019-09-22 08:23 | NUR ---
HAND-OFF: Report given to SANTINO Al. Pt is awake and in stable condition. Plan of care endorsed.
[2019-09-22] MEDS ORDERED: Omnipaque-300 100ml vial INJ PRN (08:45)
[2019-09-22] MEDS: Docusate 100mg cap ORAL SCH ×2 (09:02→17:20)
[2019-09-22] MEDS: D5 1/2NS w/KCl 20mEq 1,000 ML IV SCH ×2 (09:02→15:00)
[2019-09-22] MEDS: Heparin 5000 units/ml inj SUBQ SCH ×2 (09:04→20:44)
[2019-09-22 12:00] VITALS: BP 96/62
[2019-09-22] MEDS: Morphine Sulfate 2mg/ml Inj(IV/IM USE ONLY) IVP PRN ×2 (13:29→20:41)
--- NOTE | 2019-09-22 14:31 | Surgery Progress Note ---
Surgery Progress Note Subjective Procedure Performed abdominal exposure open lysis of adhesions Symptoms: improved, tolerating diet, voiding well, pain decreased Objective Last 24 Hour Vital Signs Date Time Temp Pulse Resp B/P (MAP) Pulse Ox O2 Delivery O2 Flow Rate FiO2 09/22/19 12:00 99.5 83 20 96/62 (73) 100 09/22/19 09:33 99.6 09/22/19 09:00 Room Air 09/22/19 08:00 101.1 91 20 94/57 (69) 98 09/22/19 04:00 99.7 80 20 92/57 (69) 98 09/22/19 00:00 99.8 91 18 100/59 (73) 98 09/21/19 21:17 100.5 09/21/19 21:00 Room Air 09/21/19 20:00 102.5 97 20 101/59 (73) 97 09/21/19 16:00 98.9 83 20 82/43 (56) 99 09/21/19 16:00 98.7 82 18 81/50 (60) 100 I&O Intake and Output 09/21/19 09/22/19 19:00 07:00 Intake Total 825 ml 150 ml Balance 825 ml 150 ml Intake Oral 150 ml IV Total 825 ml # Voids 1 Dressing: dry Wound: clean Cardiovascular: RSR Respiratory: clear Abdomen: soft, non-tender, present bowel sounds, non-distended Extremities: no edema, no tenderness, no cyanosis Laboratory Tests Test 09/22/19 05:05 White Blood Count 12.8 K/UL (4.8-10.8) H Red Blood Count 2.60 M/UL (4.20-5.40) L Hemoglobin 7.1 G/DL (12.0-16.0) L Hematocrit 21.6 % (37.0-47.0) L Mean Corpuscular Volume 83 FL (80-99) Mean Corpuscular Hemoglobin 27.5 PG (27.0-31.0) Mean Corpuscular Hemoglobin Concent 33.1 G/DL (32.0-36.0) Red Cell Distribution Width 13.2 % (11.6-14.8) Platelet Count 318 K/UL (150-450) Mean Platelet Volume 5.5 FL (6.5-10.1) L Neutrophils (%) (Auto) % (45.0-75.0) Lymphocytes (%) (Auto) % (20.0-45.0) Monocytes (%) (Auto) % (1.0-10.0) Eosinophils (%) (Auto) % (0.0-3.0) Basophils (%) (Auto) % (0.0-2.0) Differential Total Cells Counted 100 Neutrophils % (Manual) 92 % (45-75) H Lymphocytes % (Manual) 5 % (20-45) L Monocytes % (Manual) 3 % (1-10) Eosinophils % (Manual) 0 % (0-3) Basophils % (Manual) 0 % (0-2) Band Neutrophils 0 % (0-8) Platelet Estimate Adequate Platelet Morphology Normal Hypochromasia 3+ Anisocytosis 1+ Spherocytes 1+ Sodium Level 141 MMOL/L (136-145) Potassium Level 3.7 MMOL/L (3.5-5.1) Chloride Level 108 MMOL/L (98-107) H Carbon Dioxide Level 25 MMOL/L (21-32) Anion Gap 8 mmol/L (5-15) Blood Urea Nitrogen 4 mg/dL (7-18) L Creatinine 0.5 MG/DL (0.55-1.30) L Estimat Glomerular Filtration Rate > 60 mL/min (>60) Glucose Level 109 MG/DL (74-106) H Calcium Level 7.8 MG/DL (8.5-10.1) L Total Bilirubin 0.5 MG/DL (0.2-1.0) Aspartate Amino Transf (AST/SGOT) 36 U/L (15-37) Alanine Aminotransferase (ALT/SGPT) 28 U/L (12-78) Alkaline Phosphatase 60 U/L (46-116) Total Protein 5.7 G/DL (6.4-8.2) L Albumin 2.4 G/DL (3.4-5.0) L Globulin 3.3 g/dL Albumin/Globulin Ratio 0.7 (1.0-2.7) L Assessment Additional Comments recovering well much improved today intermittent nausea no emesis labs stable slowly tolerating diet more mobile today cont current care diet as tolerated activity as tolerated rx as written Octavio Landers Sep 22, 2019 14:31
--- NOTE | 2019-09-22 15:05 | Diagnostic Imaging Report ---
EXAM: XR Chest, 1 View CLINICAL HISTORY: INFECT TECHNIQUE: Frontal view of the chest. COMPARISON: None FINDINGS: Hardware: None. Lungs/pleura: Elevation of the right hemidiaphragm. Layering right pleural effusion with associated atelectasis versus pneumonia. Heart/mediastinum: Borderline prominence of the cardiac silhouette. Soft tissues: Unremarkable. Bones: No acute fracture. Upper abdomen: Normal. IMPRESSION: Layering right pleural effusion with associated atelectasis versus pneumonia.
--- NOTE | 2019-09-22 15:06 | Diagnostic Imaging Report ---
EXAM: CT Abdomen and Pelvis With Intravenous Contrast CLINICAL HISTORY: ABD PAIN TECHNIQUE: Axial computed tomography images of the abdomen and pelvis with intravenous contrast. CTDI is 5.4 mGy and DLP is 300 mGy-cm. One or more of the following dose reduction techniques were used: automated exposure control, adjustment of the mA and/or kV according to patient size, use of iterative reconstruction technique. COMPARISON: None FINDINGS: Lung bases: Dependent atelectasis bilaterally. Component of pneumonia not excluded. Pleural space: Small bilateral pleural effusions. ABDOMEN: Liver: Small hypodensities in the liver are too small to characterize. Gallbladder and bile ducts: Unremarkable. No calcified stones. No ductal dilation. Pancreas: Unremarkable. No mass. No ductal dilation. Spleen: Small splenules. Adrenals: Unremarkable. No mass. Kidneys and ureters: No hydronephrosis or obstructing stone. Small hypodensity in the left kidney is too small to definitively characterize. Stomach and bowel: Unremarkable. No obstruction. No mucosal thickening. PELVIS: Appendix: No findings to suggest acute appendicitis. Bladder: Unremarkable. No mass. Reproductive: Complex process occurring in the pelvis which appears to involve the uterus and possibly the ovaries. There is hemorrhage, gas foci, and fat density in the region of the expected uterus. Please correlate with any recent manipulation. ABDOMEN and PELVIS: Intraperitoneal space: Small amount of free air foci in the pelvis. Small amount of fluid in the abdomen with probable blood components. Bones/joints: No acute fracture. No dislocation. Soft tissues: Bilateral breast implants partially visualized. The right breast implant appears collapsed. Mild body wall edema. Postsurgical changes in the lower anterior abdominal wall with subcutaneous emphysema and mild skin thickening. Vasculature: Unremarkable. No abdominal aortic aneurysm. Lymph nodes: Unremarkable. No enlarged lymph nodes. IMPRESSION: 1. Small bilateral pleural effusions. 2. Dependent atelectasis bilaterally. Component of pneumonia not excluded. 3. Complex process occurring in the pelvis which appears to involve the uterus and possibly the ovaries. There is hemorrhage, gas foci, and fat density in the region of the expected uterus. Please correlate with surgical history. Components of active bleeding are not excluded. 4. Small amount of free air foci in the pelvis. Small amount of fluid in the abdomen with probable blood components.
[2019-09-22 16:00] VITALS: BP 91/63
[2019-09-22] MEDS ORDERED: Albuterol/Ipratropium 3ml neb HHN PRN (16:30)
--- NOTE | 2019-09-22 16:30 | Pulmonology Progress Note ---
Assessment/Plan Problems: (1) Uterine myoma Assessment/Plan ASSESSMENT: The patient is a 49-year-old female with a history of uterine fibroids and dysfunctional uterine bleeding, prior uterine fibroid embolization, now status post uterine myomectomy, doing well except for postoperative anemia and low blood pressure. PROBLEM LIST: 1. Uterine fibroids, status post prior uterine fibroid embolization, now status post myomectomy, 09/20/2019, Dr. Rivero. 2. History of thyroid cancer, status post partial thyroidectomy. 3. Postoperative anemia. 4. Postoperative fevers 5. Atelectasis TREATMENT PLAN: 1. Pain control/supportive care. 2. Declines PRBC. Monitor HH 3. IV fluid hydration. 4. Incentive spirometry 5. PRN HHN's 6. Continue Abx 7. Advanced diet per Dr. Rivero. 8. Encourage ambulation out of bed. 9. DVT prophylaxis. 10. The patient is a Full Code. Subjective Allergies: Coded Allergies: No Known Allergies (Unverified , 09/20/19) Subjective Tm 102.5 AFVSS on 2L Refused PRBC Hb 7.1 Less pain no NVDC gisell CLD + flatus no BM Objective Last 24 Hour Vital Signs Date Time Temp Pulse Resp B/P (MAP) Pulse Ox O2 Delivery O2 Flow Rate FiO2 09/22/19 16:00 99.8 94 20 91/63 (72) 95 09/22/19 12:00 99.5 83 20 96/62 (73) 100 09/22/19 09:33 99.6 09/22/19 09:00 Room Air 09/22/19 08:00 101.1 91 20 94/57 (69) 98 09/22/19 04:00 99.7 80 20 92/57 (69) 98 09/22/19 00:00 99.8 91 18 100/59 (73) 98 09/21/19 21:17 100.5 09/21/19 21:00 Room Air 09/21/19 20:00 102.5 97 20 101/59 (73) 97 Intake and Output 09/21/19 09/22/19 19:00 07:00 Intake Total 825 ml 150 ml Balance 825 ml 150 ml Intake Oral 150 ml IV Total 825 ml # Voids 1 General Appearance: WD/WN, no acute distress HEENT: normocephalic, atraumatic, anicteric, mucous membranes moist Respiratory/Chest: chest wall non-tender, lungs clear, normal breath sounds, no respiratory distress, no accessory muscle use Cardiovascular: normal peripheral pulses, normal rate, regular rhythm Abdomen: normal bowel sounds, non distended, tender - mild diffuse Extremities: no cyanosis, no clubbing, no edema Microbiology Date/Time Source Procedure Growth Status 09/20/19 10:30 Nasal Nares MRSA Culture - Final NO METHICILLIN RESISTANT STAPH AUREUS... Complete Laboratory Tests 09/22/19 05:05: White Blood Count 12.8H, Red Blood Count 2.60L, Hemoglobin 7.1L, Hematocrit 21.6L, Mean Corpuscular Volume 83, Mean Corpuscular Hemoglobin 27.5, Mean Corpuscular Hemoglobin Concent 33.1, Red Cell Distribution Width 13.2, Platelet Count 318, Mean Platelet Volume 5.5L, Neutrophils (%) (Auto) , Lymphocytes (%) ( Auto) , Monocytes (%) (Auto) , Eosinophils (%) (Auto) , Basophils (%) (Auto) , Differential Total Cells Counted 100, Neutrophils % (Manual) 92H, Lymphocytes % (Manual) 5L, Monocytes % (Manual) 3, Eosinophils % (Manual) 0, Basophils % ( Manual) 0, Band Neutrophils 0, Platelet Estimate Adequate, Platelet Morphology Normal, Hypochromasia 3+, Anisocytosis 1+, Spherocytes 1+, Sodium Level 141, Potassium Level 3.7, Chloride Level 108H, Carbon Dioxide Level 25, Anion Gap 8, Blood Urea Nitrogen 4L, Creatinine 0.5L, Estimat Glomerular Filtration Rate > 60 , Glucose Level 109H, Calcium Level 7.8L, Total Bilirubin 0.5, Aspartate Amino Transf (AST/SGOT) 36, Alanine Aminotransferase (ALT/SGPT) 28, Alkaline Phosphatase 60, Total Protein 5.7L, Albumin 2.4L, Globulin 3.3, Albumin/ Globulin Ratio 0.7L Current Medications Medications (Trade) Dose Ordered Sig/Jennifer Route PRN Reason Start Time Stop Time Status Last Admin Dose Admin Acetaminophen (Tylenol) 650 mg Q3H PRN ORAL Temp > 100.6 09/21/19 20:30 10/21/19 20:29 09/21/19 20:47 Acetaminophen (Tylenol) 650 mg Q6H PRN ORAL Mild Pain (Pain Scale 1-3) 09/20/19 12:30 10/20/19 12:29 09/22/19 09:03 Acetaminophen/ Hydrocodone Bitart (Coggon 10/325) 1 tab Q4H PRN ORAL Severe Pain (Pain Scale 7-10) 09/20/19 12:30 09/27/19 12:29 Acetaminophen/ Hydrocodone Bitart (Coggon 5/325) 1 tab Q4H PRN ORAL Moderate Pain (Pain Scale 4-6) 09/20/19 12:30 09/27/19 12:29 09/20/19 16:22 Al Hydroxide/Mg Hydroxide (Mylanta) 15 ml Q6H PRN ORAL DYSPEPSIA 09/20/19 12:30 10/20/19 12:29 Barium Sulfate (Readi-Cat 2) 450 ml NOW PRN ORAL Radiology Procedure 09/22/19 08:45 09/24/19 08:35 Cefazolin Sodium 1 gm/Dextrose 55 ml @ 110 mls/hr Q8HR IVPB 09/21/19 22:00 09/28/19 21:59 09/22/19 13:29 Dextrose/ Electrolytes 1,000 ml @ 125 mls/hr Q8H IV 09/22/19 15:00 10/20/19 14:59 Diphenhydramine HCl (Benadryl) 25 mg Q8H PRN ORAL Itching/Pruritis 09/20/19 12:30 10/20/19 12:29 Docusate Sodium (Colace) 100 mg TWICE A DAY ORAL 09/20/19 18:00 10/20/19 17:59 09/22/19 09:02 Heparin Sodium (Porcine) (Heparin 5000 units/ml) 5,000 units EVERY 12 HOURS SUBQ 09/20/19 21:00 10/20/19 20:59 09/22/19 09:04 Iohexol (OMNIPAQUE-300 100ml) 100 ml NOW PRN INJ Radiology Procedure 09/22/19 08:45 09/24/19 08:35 Iron Sucrose 100 mg/Sodium Chloride 60 ml @ 240 mls/hr BEDTIME IV 09/20/19 21:00 09/24/19 21:14 09/21/19 20:47 Ketorolac Tromethamine (Toradol 30mg) 15 mg Q6H PRN IV breakthrough pain 09/20/19 12:30 09/25/19 12:29 09/20/19 15:18 Magnesium Hydroxide (Mom) 30 ml BIDPRN PRN ORAL Constipation 09/20/19 12:30 10/20/19 12:29 Metoclopramide HCl (Reglan) 10 mg Q6H PRN IVP Nausea & Vomiting 09/20/19 12:30 10/20/19 12:29 09/22/19 04:40 Metronidazole 100 ml @ 100 mls/hr Q12HR IVPB 09/22/19 09:00 09/29/19 08:59 09/22/19 09:37 Morphine Sulfate (Morphine Sulfate) 1 mg Q4H PRN IVP pain scale 1-3 09/20/19 12:30 09/27/19 12:29 Morphine Sulfate (Morphine Sulfate) 2 mg Q4H PRN IVP For Moderate Pain 4-6 09/21/19 20:45 09/28/19 20:44 09/22/19 13:29 Morphine Sulfate (Morphine Sulfate) 4 mg Q4H PRN IVP For Severe Pain 7-10 09/21/19 20:45 09/28/19 20:44 09/22/19 09:08 Multivitamins (Multivitamins) 1 tab DAILY ORAL 09/22/19 09:00 10/22/19 08:59 09/22/19 09:02 Sennosides (Senokot) 8.6 mg BIDPRN PRN ORAL Constipation 09/20/19 12:30 10/20/19 12:29 Temazepam (RestoriL) 7.5 mg DAILYPRN PRN ORAL Insomnia 09/20/19 12:30 09/27/19 12:29 Bin Ayala MD Sep 22, 2019 16:30
--- NOTE | 2019-09-22 17:27 | General Surgery Progress Note ---
General Surgery-Progress Note Subjective Day of Surgery: september 19 Procedure Performed myomectomy Symptoms: improved, tolerating diet, voiding well, passing flatus Objective Last 24 Hour Vital Signs Date Time Temp Pulse Resp B/P (MAP) Pulse Ox O2 Delivery O2 Flow Rate FiO2 09/22/19 16:00 99.8 94 20 91/63 (72) 95 09/22/19 12:00 99.5 83 20 96/62 (73) 100 09/22/19 09:33 99.6 09/22/19 09:00 Room Air 09/22/19 08:00 101.1 91 20 94/57 (69) 98 09/22/19 04:00 99.7 80 20 92/57 (69) 98 09/22/19 00:00 99.8 91 18 100/59 (73) 98 09/21/19 21:17 100.5 09/21/19 21:00 Room Air 09/21/19 20:00 102.5 97 20 101/59 (73) 97 I&O Intake and Output 09/21/19 09/22/19 19:00 07:00 Intake Total 825 ml 150 ml Balance 825 ml 150 ml Intake Oral 150 ml IV Total 825 ml # Voids 1 Dressing: dry Wound: clean Drains: none Cardiovascular: RSR Respiratory: clear Abdomen: soft, flat, scaphoid, tenderness, present bowel sounds Extremities: no edema, no tenderness, no cyanosis Laboratory Tests Test 09/22/19 05:05 White Blood Count 12.8 K/UL (4.8-10.8) H Red Blood Count 2.60 M/UL (4.20-5.40) L Hemoglobin 7.1 G/DL (12.0-16.0) L Hematocrit 21.6 % (37.0-47.0) L Mean Corpuscular Volume 83 FL (80-99) Mean Corpuscular Hemoglobin 27.5 PG (27.0-31.0) Mean Corpuscular Hemoglobin Concent 33.1 G/DL (32.0-36.0) Red Cell Distribution Width 13.2 % (11.6-14.8) Platelet Count 318 K/UL (150-450) Mean Platelet Volume 5.5 FL (6.5-10.1) L Neutrophils (%) (Auto) % (45.0-75.0) Lymphocytes (%) (Auto) % (20.0-45.0) Monocytes (%) (Auto) % (1.0-10.0) Eosinophils (%) (Auto) % (0.0-3.0) Basophils (%) (Auto) % (0.0-2.0) Differential Total Cells Counted 100 Neutrophils % (Manual) 92 % (45-75) H Lymphocytes % (Manual) 5 % (20-45) L Monocytes % (Manual) 3 % (1-10) Eosinophils % (Manual) 0 % (0-3) Basophils % (Manual) 0 % (0-2) Band Neutrophils 0 % (0-8) Platelet Estimate Adequate Platelet Morphology Normal Hypochromasia 3+ Anisocytosis 1+ Spherocytes 1+ Sodium Level 141 MMOL/L (136-145) Potassium Level 3.7 MMOL/L (3.5-5.1) Chloride Level 108 MMOL/L (98-107) H Carbon Dioxide Level 25 MMOL/L (21-32) Anion Gap 8 mmol/L (5-15) Blood Urea Nitrogen 4 mg/dL (7-18) L Creatinine 0.5 MG/DL (0.55-1.30) L Estimat Glomerular Filtration Rate > 60 mL/min (>60) Glucose Level 109 MG/DL (74-106) H Calcium Level 7.8 MG/DL (8.5-10.1) L Total Bilirubin 0.5 MG/DL (0.2-1.0) Aspartate Amino Transf (AST/SGOT) 36 U/L (15-37) Alanine Aminotransferase (ALT/SGPT) 28 U/L (12-78) Alkaline Phosphatase 60 U/L (46-116) Total Protein 5.7 G/DL (6.4-8.2) L Albumin 2.4 G/DL (3.4-5.0) L Globulin 3.3 g/dL Albumin/Globulin Ratio 0.7 (1.0-2.7) L Imaging cxr likely atelectasis. CT scan normal post op findings Additional Comments low grade temperature normal after myomectomy preceeded by uae Assessment Additional Comments hgb stable now, BP elevating. pain controlled by iv morphine Plan Additional Comments ambulate, may shower. advanced diet in am, consider oral analgesics in am. Adam Rivero MD Sep 22, 2019 17:27
--- NOTE | 2019-09-22 19:20 | NUR ---
HAND-OFF: Report given to Tony, RN, pt is stable condition.
--- NOTE | 2019-09-22 19:20 | NUR ---
NURSE NOTES: Receive a report from SANTINO Al. Round is done. Pt is awake and alert. No acute distress noted. Surgery site dressing kept dry and clean. Pain is tolerating. Re-educated to use I/S every hour while awake. Provide pillow to support abdomen while using I/S. NO chilling or febrile sensation. Assist pt to use BSC. On SCDs bilateral. Encourage to oral hydration. Call light within reach. Will continue to monitor.
[2019-09-22 20:30] VITALS: BP 99/60
[2019-09-22] MEDS: Iron Sucrose 100 MG in NS 55 ML IV SCH (20:40)
--- NOTE | 2019-09-22 20:41 | NUR ---
NURSE NOTES: Pt complains for abdominal pain 01/15 and pulled Morphine 2mg/1ml from Pyxis. But accidently touched option of Morphine 1mg/0.5ml to waste. Due to pt's level of pain, Morphine 2mg/1ml was given and CN made aware for the situation. Will follow up with pharmacy in the morning this situation. Addendum: 09/23/19 at 0748 by Tony Ludwig RN Follow-up with pharmacy Spoke with a pharmacist and explained the situation of picking up Morphine 1mg(mild pain) instead of Morphine 2mg(moderate pain) for pt's moderate pain, 01/15. Was asked to write a explanation of pain level and given dose, which is Morphine 2mg/1ml on the nurse note.
--- NOTE | 2019-09-22 21:30 | NUR ---
NURSE NOTES: Given pain medication and Tylenol for elevated temp. Pt feels comfortable and dropped temperature. On ATB treatment. No respiratory distress noted. Pt uses I/S upto 500ml. Will continue to monitor.
[2019-09-23] VITALS: BP 93/60
[2019-09-23] MEDS: D5 1/2NS w/KCl 20mEq 1,000 ML IV SCH ×2 (00:25→07:00)
[2019-09-23] MEDS: Morphine Sulfate 4mg/ml Inj (IV USE ONLY) IVP PRN (00:26)
--- NOTE | 2019-09-23 01:00 | NUR ---
NURSE NOTES: Pt states that she feels cramping like period. After urination, noted blood drop on the toilet paper. VSS remains stable. No dizziness noted. After pain medication as ordered, pt is feeling better as 4/10. No nausea noted. Will continue to monitor.
[2019-09-23 04:30] VITALS: BP 112/63
[2019-09-23] MEDS: ceFAZolin sod 1 GM in D5W 55 ML IVPB SCH ×3 (05:27→22:35)
--- NOTE | 2019-09-23 05:30 | NUR ---
NURSE NOTES: Pt wants to have more solid food for breakfast. Switched from clear liquid to full liquid. Complains for gastric soreness and SAXENA. Provide saltine crackers and Tylenol. No chilling or febrile sensation noted. BT: 99.1F. Walked to bathroom with walker and RN assisted. Will continue to monitor.
[2019-09-23 06:22] LABS: HEMATOCRIT 21.4 % (37.0-47.0); MEAN CORPUSCULAR VOLUME 84 FL (80-99); PLATELET COUNT 316 K/UL (150-450); RED BLOOD COUNT 2.57 M/UL (4.20-5.40); RED CELL DISTRIBUTION WIDTH 14.9 % (11.6-14.8); WHITE BLOOD COUNT 12.5 K/UL (4.8-10.8)
[2019-09-23 06:55] LABS: ALANINE AMINOTRANSFERASE 22 U/L (12-78); ALBUMIN 2.3 G/DL (3.4-5.0); ALBUMIN/GLOBULIN RATIO 0.7 (1.0-2.7); ALKALINE PHOSPHATASE 57 U/L (46-116); ANION GAP 8 mmol/L (5-15); ASPARTATE AMINO TRANSFERASE 23 U/L (15-37); BILIRUBIN,TOTAL 0.5 MG/DL (0.2-1.0); BLOOD UREA NITROGEN 2 mg/dL (7-18); CARBON DIOXIDE 25 MMOL/L (21-32); CHLORIDE 107 MMOL/L (98-107); CREATININE 0.4 MG/DL (0.55-1.30); POTASSIUM 3.3 MMOL/L (3.5-5.1); SODIUM 139 MMOL/L (136-145)
[2019-09-23 07:32] LABS: HEMOGLOBIN 6.9 G/DL (12.0-16.0)
[2019-09-23 08:00] VITALS: BP 91/59
[2019-09-23] MEDS ORDERED: Ketorolac 30mg Inj IV PRN (09:15)
[2019-09-23] MEDS: Docusate 100mg cap ORAL SCH ×2 (09:57→17:35)
[2019-09-23] MEDS: Heparin 5000 units/ml inj SUBQ SCH ×2 (09:57→20:55)
[2019-09-23] MEDS: HYDROcodone/Acetamin 5/325 tab ORAL PRN (09:58)
[2019-09-23] MEDS: D5 1/2NS w/KCl 40meq 1000ml 1,000 ML IV SCH ×2 (09:59→21:09)
--- NOTE | 2019-09-23 10:00 | NUR ---
NURSE NOTES: Patient is in bed asleep. Stable. Breathing is even and unlabored. No visible signs of distress noted. Patient is in bed in locked and lowest position with call light within reach. All safety measures provided. Will continue to monitor.
[2019-09-23] MEDS: Metoclopramide 10mg/2ml Inj IVP PRN (11:38)
[2019-09-23 12:00] VITALS: BP 109/64
[2019-09-23] MEDS ORDERED: HYDROcodone/Acetamin 10/325 tab ORAL PRN (12:00)
--- NOTE | 2019-09-23 12:35 | Surgery Progress Note ---
Surgery Progress Note Subjective Procedure Performed abdominal exposure open lysis of adhesions Symptoms: improved, voiding well, passing flatus, BM Objective Last 24 Hour Vital Signs Date Time Temp Pulse Resp B/P (MAP) Pulse Ox O2 Delivery O2 Flow Rate FiO2 09/23/19 12:00 97.6 75 20 109/64 (79) 98 09/23/19 09:00 Room Air 09/23/19 08:00 99.0 84 19 91/59 (70) 99 09/23/19 04:30 99.1 83 20 112/63 (79) 97 09/23/19 00:00 100.1 97 20 93/60 (71) 95 09/22/19 22:14 99.5 09/22/19 21:00 Room Air 09/22/19 20:30 102.2 103 20 99/60 (73) 94 09/22/19 16:00 99.8 94 20 91/63 (72) 95 I&O Intake and Output 09/22/19 09/23/19 19:00 07:00 Intake Total 480 ml 275 ml Balance 480 ml 275 ml Intake Oral 480 ml 150 ml IV Total 125 ml # Voids 5 Dressing: dry Wound: dry Cardiovascular: RSR Respiratory: clear Abdomen: soft, non-tender, present bowel sounds Extremities: no edema, no tenderness, no cyanosis Laboratory Tests Test 09/23/19 05:15 White Blood Count 12.5 K/UL (4.8-10.8) H Red Blood Count 2.57 M/UL (4.20-5.40) L Hemoglobin 6.9 G/DL (12.0-16.0) *L Hematocrit 21.4 % (37.0-47.0) L Mean Corpuscular Volume 84 FL (80-99) Mean Corpuscular Hemoglobin 27.0 PG (27.0-31.0) Mean Corpuscular Hemoglobin Concent 32.3 G/DL (32.0-36.0) Red Cell Distribution Width 14.9 % (11.6-14.8) H Platelet Count 316 K/UL (150-450) Mean Platelet Volume 5.4 FL (6.5-10.1) L Neutrophils (%) (Auto) % (45.0-75.0) Lymphocytes (%) (Auto) % (20.0-45.0) Monocytes (%) (Auto) % (1.0-10.0) Eosinophils (%) (Auto) % (0.0-3.0) Basophils (%) (Auto) % (0.0-2.0) Differential Total Cells Counted 100 Neutrophils % (Manual) 79 % (45-75) H Lymphocytes % (Manual) 12 % (20-45) L Monocytes % (Manual) 9 % (1-10) Eosinophils % (Manual) 0 % (0-3) Basophils % (Manual) 0 % (0-2) Band Neutrophils 0 % (0-8) Platelet Estimate Adequate Platelet Morphology Normal Hypochromasia 3+ Anisocytosis 1+ Sodium Level 139 MMOL/L (136-145) Potassium Level 3.3 MMOL/L (3.5-5.1) L Chloride Level 107 MMOL/L (98-107) Carbon Dioxide Level 25 MMOL/L (21-32) Anion Gap 8 mmol/L (5-15) Blood Urea Nitrogen 2 mg/dL (7-18) L Creatinine 0.4 MG/DL (0.55-1.30) L Estimat Glomerular Filtration Rate > 60 mL/min (>60) Glucose Level 111 MG/DL (74-106) H Calcium Level 8.0 MG/DL (8.5-10.1) L Total Bilirubin 0.5 MG/DL (0.2-1.0) Aspartate Amino Transf (AST/SGOT) 23 U/L (15-37) Alanine Aminotransferase (ALT/SGPT) 22 U/L (12-78) Alkaline Phosphatase 57 U/L (46-116) Total Protein 5.8 G/DL (6.4-8.2) L Albumin 2.3 G/DL (3.4-5.0) L Globulin 3.5 g/dL Albumin/Globulin Ratio 0.7 (1.0-2.7) L Plan Additional Comments recovering adv diet d/c fluids once tolerating more oral d/c planning Octavio Landers Sep 23, 2019 12:35
[2019-09-23] MEDS ORDERED: Morphine Sulfate 4mg/ml Inj (IV USE ONLY) IVP PRN (12:45)
[2019-09-23] MEDS: oxyCODONE HCL/Acetaminophen 5/325mg ORAL PRN (15:10)
[2019-09-23 16:00] VITALS: BP 105/71
--- NOTE | 2019-09-23 17:57 | Pulmonology Progress Note ---
Assessment/Plan Problems: (1) Uterine myoma Assessment/Plan ASSESSMENT: The patient is a 49-year-old female with a history of uterine fibroids and dysfunctional uterine bleeding, prior uterine fibroid embolization, now status post uterine myomectomy, doing well except for postoperative anemia and low blood pressure. PROBLEM LIST: 1. Uterine fibroids, status post prior uterine fibroid embolization, now status post myomectomy, 09/20/2019, Dr. Rivero. 2. History of thyroid cancer, status post partial thyroidectomy. 3. Postoperative anemia. 4. Postoperative fevers 5. Atelectasis TREATMENT PLAN: 1. Pain control/supportive care. 2. Declines PRBC. Monitor HH 3. D/C IVF once gisell adequate PO 4. Incentive spirometry 5. PRN HHN's 6. Continue Abx 7. Diet per Dr. Rivero. 8. Encourage ambulation out of bed. 9. DVT prophylaxis. 10. The patient is a Full Code. Subjective Allergies: Coded Allergies: No Known Allergies (Unverified , 09/20/19) Subjective Tm 102.1 VSS on RA Refused PRBC Hb 6.9 Less pain no NVDC gisell diet + flatus + BM Objective Last 24 Hour Vital Signs Date Time Temp Pulse Resp B/P (MAP) Pulse Ox O2 Delivery O2 Flow Rate FiO2 09/23/19 16:00 98.5 84 20 105/71 (82) 97 09/23/19 12:00 97.6 75 20 109/64 (79) 98 09/23/19 09:00 Room Air 09/23/19 08:00 99.0 84 19 91/59 (70) 99 09/23/19 04:30 99.1 83 20 112/63 (79) 97 09/23/19 00:00 100.1 97 20 93/60 (71) 95 09/22/19 22:14 99.5 09/22/19 21:00 Room Air 09/22/19 20:30 102.2 103 20 99/60 (73) 94 Intake and Output 09/22/19 09/23/19 19:00 07:00 Intake Total 480 ml 275 ml Balance 480 ml 275 ml Intake Oral 480 ml 150 ml IV Total 125 ml # Voids 5 General Appearance: WD/WN, no acute distress HEENT: normocephalic, atraumatic, anicteric, mucous membranes moist Respiratory/Chest: chest wall non-tender, lungs clear, normal breath sounds, no respiratory distress, no accessory muscle use Cardiovascular: normal peripheral pulses, normal rate, regular rhythm Abdomen: normal bowel sounds, non distended, tender Extremities: no cyanosis, no clubbing, no edema Microbiology Date/Time Source Procedure Growth Status 09/21/19 21:00 Blood Blood Culture - Preliminary NO GROWTH AFTER 24 HOURS Resulted 09/22/19 10:20 Indwelling Cath Urine Culture - Preliminary NO GROWTH Resulted Laboratory Tests 09/23/19 05:15: White Blood Count 12.5H, Red Blood Count 2.57L, Hemoglobin 6.9*L, Hematocrit 21.4L, Mean Corpuscular Volume 84, Mean Corpuscular Hemoglobin 27.0, Mean Corpuscular Hemoglobin Concent 32.3, Red Cell Distribution Width 14.9H, Platelet Count 316, Mean Platelet Volume 5.4L, Neutrophils (%) (Auto) , Lymphocytes (%) (Auto) , Monocytes (%) (Auto) , Eosinophils (%) (Auto) , Basophils (%) (Auto) , Differential Total Cells Counted 100, Neutrophils % ( Manual) 79H, Lymphocytes % (Manual) 12L, Monocytes % (Manual) 9, Eosinophils % ( Manual) 0, Basophils % (Manual) 0, Band Neutrophils 0, Platelet Estimate Adequate, Platelet Morphology Normal, Hypochromasia 3+, Anisocytosis 1+, Sodium Level 139, Potassium Level 3.3L, Chloride Level 107, Carbon Dioxide Level 25, Anion Gap 8, Blood Urea Nitrogen 2L, Creatinine 0.4L, Estimat Glomerular Filtration Rate > 60, Glucose Level 111H, Calcium Level 8.0L, Total Bilirubin 0.5, Aspartate Amino Transf (AST/SGOT) 23, Alanine Aminotransferase (ALT/SGPT) 22, Alkaline Phosphatase 57, Total Protein 5.8L, Albumin 2.3L, Globulin 3.5, Albumin/Globulin Ratio 0.7L Current Medications Medications (Trade) Dose Ordered Sig/Jennifer Route PRN Reason Start Time Stop Time Status Last Admin Dose Admin Acetaminophen (Tylenol) 650 mg Q3H PRN ORAL Temp > 100.6 09/21/19 20:30 10/21/19 20:29 09/22/19 20:43 Acetaminophen (Tylenol) 650 mg Q6H PRN ORAL Mild Pain (Pain Scale 1-3) 09/20/19 12:30 10/20/19 12:29 09/23/19 05:38 Acetaminophen/ Hydrocodone Bitart ([place] 10/325) 1 tab Q4H PRN ORAL Moderate Pain (Pain Scale 4-6) 09/23/19 12:00 09/27/19 12:29 Al Hydroxide/Mg Hydroxide (Mylanta) 15 ml Q6H PRN ORAL DYSPEPSIA 09/20/19 12:30 10/20/19 12:29 Albuterol/ Ipratropium (Albuterol/ Ipratropium) 3 ml Q4H PRN HHN Shortness of Breath 09/22/19 16:30 09/27/19 16:29 Barium Sulfate (Readi-Cat 2) 450 ml NOW PRN ORAL Radiology Procedure 09/22/19 08:45 09/24/19 08:35 Cefazolin Sodium 1 gm/Dextrose 55 ml @ 110 mls/hr Q8HR IVPB 09/21/19 22:00 09/28/19 21:59 09/23/19 13:26 Dextrose/ Electrolytes 1,000 ml @ 80 mls/hr [id number] IV 09/23/19 09:00 10/23/19 08:59 09/23/19 09:59 Diphenhydramine HCl (Benadryl) 25 mg Q8H PRN ORAL Itching/Pruritis 09/20/19 12:30 10/20/19 12:29 Docusate Sodium (Colace) 100 mg TWICE A DAY ORAL 09/20/19 18:00 10/20/19 17:59 09/23/19 09:57 Heparin Sodium (Porcine) (Heparin 5000 units/ml) 5,000 units EVERY 12 HOURS SUBQ 09/20/19 21:00 10/20/19 20:59 09/23/19 09:57 Iohexol (OMNIPAQUE-300 100ml) 100 ml NOW PRN INJ Radiology Procedure 09/22/19 08:45 09/24/19 08:35 Iron Sucrose 100 mg/Sodium Chloride 60 ml @ 240 mls/hr BEDTIME IV 09/20/19 21:00 09/24/19 21:14 09/22/19 20:40 Ketorolac Tromethamine (Toradol 30mg) 15 mg Q6H PRN IV MODERATE BREAKTHROUGH PAIN 09/23/19 09:15 09/25/19 12:29 Magnesium Hydroxide (Mom) 30 ml BIDPRN PRN ORAL Constipation 09/20/19 12:30 10/20/19 12:29 Metoclopramide HCl (Reglan) 10 mg Q6H PRN IVP Nausea & Vomiting 09/20/19 12:30 10/20/19 12:29 09/23/19 11:38 Metronidazole 100 ml @ 100 mls/hr Q12HR IVPB 09/22/19 09:00 09/29/19 08:59 09/23/19 09:58 Morphine Sulfate (Morphine Sulfate) 4 mg Q4H PRN IVP SEVERE BREAKTHROUGH PAIN 09/23/19 12:45 09/28/19 20:44 Multivitamins (Multivitamins) 1 tab DAILY ORAL 09/22/19 09:00 10/22/19 08:59 09/23/19 09:57 Oxycodone/ Acetaminophen (Percocet 5-325) 1 tab Q4H PRN ORAL Severe Pain (Pain Scale 7-10) 09/23/19 12:00 09/30/19 11:59 09/23/19 15:10 Sennosides (Senokot) 8.6 mg BIDPRN PRN ORAL Constipation 09/20/19 12:30 10/20/19 12:29 Temazepam (RestoriL) 7.5 mg DAILYPRN PRN ORAL Insomnia 09/20/19 12:30 09/27/19 12:29 Bin Ayala MD Sep 23, 2019 17:57
--- NOTE | 2019-09-23 18:15 | NUR ---
NURSE NOTES: Rounds done with Dr. Ayala. sent percocet prescription to patient's pharmacy. MD explained blood transfusion risks and benefits to patient, patient signed consent. Will continue to monitor.
--- NOTE | 2019-09-23 18:29 | General Surgery Progress Note ---
General Surgery-Progress Note Subjective Procedure Performed myomectomy Symptoms: improved, tolerating diet, BM Objective Last 24 Hour Vital Signs Date Time Temp Pulse Resp B/P (MAP) Pulse Ox O2 Delivery O2 Flow Rate FiO2 09/23/19 16:00 98.5 84 20 105/71 (82) 97 09/23/19 12:00 97.6 75 20 109/64 (79) 98 09/23/19 09:00 Room Air 09/23/19 08:00 99.0 84 19 91/59 (70) 99 09/23/19 04:30 99.1 83 20 112/63 (79) 97 09/23/19 00:00 100.1 97 20 93/60 (71) 95 09/22/19 22:14 99.5 09/22/19 21:00 Room Air 09/22/19 20:30 102.2 103 20 99/60 (73) 94 I&O Intake and Output 09/22/19 09/23/19 19:00 07:00 Intake Total 480 ml 275 ml Balance 480 ml 275 ml Intake Oral 480 ml 150 ml IV Total 125 ml # Voids 5 Dressing: dry Wound: clean Drains: none Cardiovascular: RSR Abdomen: non-tender, present bowel sounds Extremities: no edema, no tenderness, no cyanosis Laboratory Tests Test 09/23/19 05:15 White Blood Count 12.5 K/UL (4.8-10.8) H Red Blood Count 2.57 M/UL (4.20-5.40) L Hemoglobin 6.9 G/DL (12.0-16.0) *L Hematocrit 21.4 % (37.0-47.0) L Mean Corpuscular Volume 84 FL (80-99) Mean Corpuscular Hemoglobin 27.0 PG (27.0-31.0) Mean Corpuscular Hemoglobin Concent 32.3 G/DL (32.0-36.0) Red Cell Distribution Width 14.9 % (11.6-14.8) H Platelet Count 316 K/UL (150-450) Mean Platelet Volume 5.4 FL (6.5-10.1) L Neutrophils (%) (Auto) % (45.0-75.0) Lymphocytes (%) (Auto) % (20.0-45.0) Monocytes (%) (Auto) % (1.0-10.0) Eosinophils (%) (Auto) % (0.0-3.0) Basophils (%) (Auto) % (0.0-2.0) Differential Total Cells Counted 100 Neutrophils % (Manual) 79 % (45-75) H Lymphocytes % (Manual) 12 % (20-45) L Monocytes % (Manual) 9 % (1-10) Eosinophils % (Manual) 0 % (0-3) Basophils % (Manual) 0 % (0-2) Band Neutrophils 0 % (0-8) Platelet Estimate Adequate Platelet Morphology Normal Hypochromasia 3+ Anisocytosis 1+ Sodium Level 139 MMOL/L (136-145) Potassium Level 3.3 MMOL/L (3.5-5.1) L Chloride Level 107 MMOL/L (98-107) Carbon Dioxide Level 25 MMOL/L (21-32) Anion Gap 8 mmol/L (5-15) Blood Urea Nitrogen 2 mg/dL (7-18) L Creatinine 0.4 MG/DL (0.55-1.30) L Estimat Glomerular Filtration Rate > 60 mL/min (>60) Glucose Level 111 MG/DL (74-106) H Calcium Level 8.0 MG/DL (8.5-10.1) L Total Bilirubin 0.5 MG/DL (0.2-1.0) Aspartate Amino Transf (AST/SGOT) 23 U/L (15-37) Alanine Aminotransferase (ALT/SGPT) 22 U/L (12-78) Alkaline Phosphatase 57 U/L (46-116) Total Protein 5.8 G/DL (6.4-8.2) L Albumin 2.3 G/DL (3.4-5.0) L Globulin 3.5 g/dL Albumin/Globulin Ratio 0.7 (1.0-2.7) L Plan Additional Comments transfusion 2 units prbc. will discharge in am. Adam Rivero MD Sep 23, 2019 18:29
--- NOTE | 2019-09-23 19:30 | NUR ---
HAND-OFF: Report given to Rosyo RN. Patient is stable.
--- NOTE | 2019-09-23 19:30 | NUR ---
NURSE NOTES: Receive a report from SANTINO Epperson. Round is done. Pt is awake and alert. Pain level decreased a lot. Refuses to take any pain medication at this time. Pt is aware of transfusion. Surgery site is open the air and clean. Call light within reach. Will continue to monitor.
[2019-09-23 20:00] VITALS: BP 107/68
--- NOTE | 2019-09-23 20:20 | NUR ---
NURSE NOTES: Done Cross-matching to prepare for P-RBC. Given information for S/E of transfusions and follow-up CBC. Will continue to monitor.
[2019-09-23] MEDS: Iron Sucrose 100 MG in NS 55 ML IV SCH (20:44)
--- NOTE | 2019-09-23 23:50 | NUR ---
NURSE NOTES: Starting P-RBC 2-1. Checking V/S and IV site on right AC 20 G without infiltration. Will continue to monitor S/Es of transfusion.
[2019-09-24] VITALS: BP 111/69
--- NOTE | 2019-09-24 00:05 | NUR ---
NURSE NOTES: No S/E after 15min transfusion. Pt is feeling coldness. Provide extra blanket and hot tea. Will continue to monitor.
--- NOTE | 2019-09-24 02:05 | NUR ---
NURSE NOTES: 2-1 P-RBC one pint transfusion finished without any side effects. VSs are stable. Assist to use bathroom. Pt states that she does not feel much dizziness when she gets up. Will get 2nd pint from blood bank. Will continue to monitor.
--- NOTE | 2019-09-24 02:55 | NUR ---
NURSE NOTES: @0240 Started 2-2 P-RBC transfusion. v/s are checked. @0255 No S/E. V/S are checked. IV site intact. Will continue to monitor.
[2019-09-24 04:00] VITALS: BP 115/74
--- NOTE | 2019-09-24 05:00 | NUR ---
NURSE NOTES: P-RBC 2-2 transfusion finished without S/E. VSS are checked as stable. Will follow up CBC in an hour. Will continue to monitor.
[2019-09-24] MEDS: ceFAZolin sod 1 GM in D5W 55 ML IVPB SCH (05:38)
[2019-09-24] MEDS: oxyCODONE HCL/Acetaminophen 5/325mg ORAL PRN (05:51)
[2019-09-24 06:37] LABS: BASOPHILS % (AUTO) 0.7 % (0.0-2.0); EOSINOPHILS % (AUTO) 2.9 % (0.0-3.0); HEMATOCRIT 28.7 % (37.0-47.0); HEMOGLOBIN 9.5 G/DL (12.0-16.0); LYMPHOCYTES % (AUTO) 14.4 % (20.0-45.0); MEAN CORPUSCULAR VOLUME 83 FL (80-99); MONOCYTES % (AUTO) 7.1 % (1.0-10.0); PLATELET COUNT 343 K/UL (150-450); RED BLOOD COUNT 3.43 M/UL (4.20-5.40); RED CELL DISTRIBUTION WIDTH 13.4 % (11.6-14.8)
--- NOTE | 2019-09-24 07:15 | NUR ---
HAND-OFF: Report given to SANTINO Epperson.
--- NOTE | 2019-09-24 07:30 | NUR ---
NURSE NOTES: Patient is in bed awake and able to verbalize needs. Stable. Denies pain or SOB. Patient assisted to bathroom then assisted back to bed without incident. Plan of care discussed with patient. Patient is in bed in locked and lowest position with call light within reach. All safety measures provided. Will continue to monitor.
[2019-09-24 08:00] VITALS: BP 122/71
[2019-09-24] MEDS: Docusate 100mg cap ORAL SCH (09:00)
[2019-09-24] MEDS: Heparin 5000 units/ml inj SUBQ SCH (09:00)
--- NOTE | 2019-09-24 09:06 | NUR ---
NURSE NOTES: Patient made aware about PT recommendation to discharge home with front wheel walker, patient stated that she might have one at home already and will check with father. Will provide front wheel walker if necessary.
[2019-09-24] MEDS: D5 1/2NS w/KCl 40meq 1000ml 1,000 ML IV SCH (10:00)
--- NOTE | 2019-09-24 10:34 | NUR ---
NURSE NOTES: Front wheel walker provided. IV removed. Discharge teaching given by RN and Dr. Rivero over the phone.
--- NOTE | 2019-09-24 11:45 | NUR ---
NURSE NOTES: Patient discharged home as ordered. Stable. Denies pain or SOB. Abdominal binder in place, front wheel walker provided, teaching given by physical therapist. Thorough discharge instructions given by RN and Dr. Koroma. Patient and patient's verbalized understanding. Patient has all belongings. Surgical site c/d/i. Patient will fill pain medication prescription at her home pharmacy. Patient assisted downstairs via wheelchair without incident.
[2019-09-24] MEDS ORDERED: NS 275ml ONE (11:49)
[2019-09-24] MEDS ORDERED: Tubing IV Blood Pump IV ONE (11:49)
--- NOTE | 2019-09-25 13:16 | Discharge Summary ---
Discharge Summary Discharge Summary _ DATE OF ADMISSION: 09/20/2019 DATE OF DISCHARGE: 09/24/2019 DISCHARGED BY: Dr. Ayala REASON FOR ADMISSION: 49 years old female with past medical history of uterine fibroids, status post uterine artery embolization, thyroid cancer, status post partial thyroidectomy, with heavy menses and dysfunctional uterine bleeding, presented for elective surgery- myomectomy. CONSULTANTS: General surgery Dr. Landers [employer] surgeon Dr. Rivero [facility] COURSE: Patient admitted and undergone elective myomectomy on 09/20/2019. Pain management was addressed as needed. Supportive care provided. Patient was on the IV hydration and empiric antibiotic. Hemodynamic status was closely monitored. Patient received 2 units of packed red blood cell ; prior to discharge hemoglobin 9.5 ,hematocrit 28.7. Mobilization was encouraged. Patient was out of bed as tolerated. Incentive spirometry was encouraged while in the bed. DVT prophylaxis provided. Patient slowly started on diet when bowel function returned , and was advanced as tolerated. Antiemetic were on board as needed. Bowel regimen instituted. Patient had postoperative fevers and mild leukocytosis,. Patient started on empiric antibiotic. Blood cultures were negative. Urine culture was negative. CT of the abdomen and pelvis revealed dependent atelectasis bilaterally, small amount of free air foci in the pelvis related to recent surgery and small bilateral pleural effusion. Chest x-ray demonstrated layering right pleural effusion with associated atelectasis versus pneumonia. Supplemental oxygen was on board as needed to keep pulse oximetry above 92%. Pulse oximetry was stable on room air. Bronchodilator treatment via HHN was on board as needed. Fevers and leukocytosis resolved. Pathology of uterine fibroids revealed leiomyoma with degenerative changes, secretory endometrium, no evidence of malignancy. Right cyst fluid cytology revealed no malignant cells. Patient clinically stabilized. Fever and leukocytosis resolved. Patient was able to tolerate diet and had a bowel movement . Patient ambulated and voided without difficulty. Hemodynamic status remained stable. Patient was stable for discharge home. Outpatient follow-up with a surgeon as advised. FINAL DIAGNOSES: Symptomatic leiomyoma of the uterus with pelvic adhesions and right ovarian cyst Status post abdominal myomectomy, lysis of adhesion and incisional biopsy of right ovarian cyst 09/20 History of thyroid cancer , status post partial thyroidectomy Postoperative anemia , status post blood transfusion Postoperative fevers- resolved Atelectasis DISCHARGE MEDICATIONS: See Medication Reconciliation list. DISCHARGE INSTRUCTIONS: Patient was discharged home. Follow-up with a surgeon as advised. I have been assigned to dictate discharge summary for this account. I was not involved in the patient's management. Steffanie Valadez NP Sep 25, 2019 13:16
--- NOTE | 2019-09-26 12:56 | NUR ---
*-* INSURANCE *-* ALL CLINICALS AND REVIEWS HAVE BEEN FAXED [facility] [employer] [place] NCM:[employer] P: [phone] F: [phone]
== END 2019-09-24 11:50 | disposition home or self-care (01) | DRG 742 ==
LOC: SUR 09:47 → 3E 13:20
PROC: 0UB90ZZ Excision of Uterus, Open Approach (ICD-10-PCS; principal; 2019-09-20 10:30)
PROC: 0DNW0ZZ Release Peritoneum, Open Approach (ICD-10-PCS; principal; 2019-09-20 10:30)
PROC: 0UB00ZX Excision of Right Ovary, Open Approach, Diagnostic (ICD-10-PCS; principal; 2019-09-20 10:30)
PROC: 30233N1 Transfusion of Nonautologous Red Blood Cells into Peripheral Vein, Percutaneous Approach (ICD-10-PCS; 2019-09-23)
DX: D25.9 Leiomyoma of uterus, unspecified (principal); J98.11 Atelectasis; N93.8 Other specified abnormal uterine and vaginal bleeding; N83.201 Unspecified ovarian cyst, right side; E03.9 Hypothyroidism, unspecified; Z85.850 Personal history of malignant neoplasm of thyroid; R50.9 Fever, unspecified; D64.9 Anemia, unspecified
CPT/HCPCS: 36415; 71045; 74177; 80048; 80053; 81025; 83735; 84100; 85007; 85025; 86850; 86900; 86901; 86920; 87040; 87081; 87086; 94003; 94150; J2405; J2710; J2765